=== PATIENT | female | born 1950 | race Caucasian/White ===

== ENCOUNTER 2020-01-19 12:54 | Emergency (ER) | payer MEDICARE, SELFPAY ==
[2020-01-19 12:55] VITALS: BP 110/60; PULSE 76; RESP 18; TEMP 36.7; O2SAT 100; BMI 25.7
--- NOTE | 2020-01-19 14:11 | RAD_ITS ---
STUDY: X-RAY - RIGHT SHOULDER REASON FOR EXAM: Female, 69 years old. FALL, PAIN TECHNIQUE: 4 view(s) of the shoulder. COMPARISON: None. FINDINGS: Normal glenohumeral articulation. Normal acromioclavicular joint. Normal acromion. Normal humeral head and visualized proximal humerus. The soft tissue structures are unremarkable. Normal visualized pulmonary apex. RAD/Shoulder min 2 Views IMPRESSION: Normal x-ray examination of the shoulder. Electronically Signed: Norm Bruner, at 14:53 EDT , Service support ,
--- NOTE | 2020-01-19 14:11 | CT_ITS ---
STUDY: CT BRAIN WITHOUT CONTRAST REASON FOR EXAM: Female, 69 years old. PT STATED HX OF FALLS RADIATION DOSAGE (If Supplied By Facility): CTDIvol = ( 44.99 ) mGy, DLP = ( 745.49 ) mGycm TECHNIQUE: Transaxial CT imaging of the brain was performed without administration of intravenous contrast material. Individualized dose optimization techniques were used for this CT. COMPARISON: No relevant priors. FINDINGS: Normal soft tissue structures. There is evidence of prior right frontoparietal craniotomy with mesh placement. There is mild cerebral atrophy with widening of the extra-axial spaces and ventricular dilatation. There are areas of decreased attenuation within the white matter tracts of the supratentorial brain, consistent with microvascular disease changes. Normal basal ganglia and thalami. Normal brainstem. There is mild cerebellar atrophy. There is no intracranial hemorrhage. There are no findings of an acute ischemic infarction. Atherosclerotic calcification of the cavernous portions of the internal carotid arteries bilaterally. Normal visualized paranasal sinuses. CT/Brain/Head without Contrast IMPRESSION: Chronic involutional changes of the brain. Status post right frontoparietal craniotomy. Electronically Signed: Norm Bruner, at 14:49 EDT , Service support ,
--- NOTE | 2020-01-19 14:11 | RAD_ITS ---
STUDY: X-RAY - PELVIS REASON FOR EXAM: Female, 69 years old. FALL, RIGHT SIDED PAIN TECHNIQUE: One view of the pelvis was obtained. COMPARISON: None. FINDINGS: There is a non-specific bowel gas pattern. Normal visualized soft tissue structures. There is narrowing with cortical sclerosis and osteophyte formation of the sacroiliac joint consistent with degenerative osteoarthritic changes. Normal visualized bilateral superior and inferior pubic rami. There are degenerative changes of the pubic symphysis with articular narrowing and sclerosis. Normal ischial tuberosities. Normal visualized right femoral head. Normal right acetabulum. There is moderate articular joint space narrowing of the right hip. Normal visualized left femoral head. Normal left acetabulum. There is moderate articular joint space narrowing of the left hip. Prior laminectomy and fusion in the lower lumbar spine. RAD/Pelvis 1 or 2 Views IMPRESSION: Moderate degree of osteoarthritis of both hip joints slightly worse on the right side. Electronically Signed: Norm Bruner, at 14:51 EDT , Service support ,
--- NOTE | 2020-01-19 14:28 | RAD_ITS ---
STUDY: X-RAY - RIGHT FEMUR REASON FOR STUDY: Female, 69 years old. FALL, DISTAL BRUISING TECHNIQUE: 4 view(s) of the femur. COMPARISON: None. FINDINGS: Focal ossification overlying the greater trochanter of the proximal femur suggestive of a bursitis. Normal visualized soft tissue structure. RAD/Femur Min 2 Views IMPRESSION: Findings images of calcific bursitis overlying the greater trochanter of the proximal right femur. Electronically Signed: Norm Bruner, at 14:50 EDT , Service support ,
[2020-01-19 14:55] VITALS: BP 116/65; PULSE 71; RESP 18; O2SAT 98
--- NOTE | 2020-01-19 14:58 | ED.VIS.FALL ---
History of Present Illness Chief Complaint: Fall Informant: Patient Occurred: Days - 3 Mechanism/Context: Same level fall, Trip Usually ambulates: Without assistance - At home, Cane - when out Location: Right shoulder, Right upper leg Quality of Pain: Aching Associated Symptoms: Negative for: Parasthesias, Weakness, Loss of function, Inability to ambulate, Loss of consciousness, Amnesia Narrative: Patient is a 69-year-old female with history of hypertension, diabetes mellitus, depression and prior traumatic head injury with subsequent craniotomy and plate placed presenting for evaluation after mechanical fall. On Sunday, 3 days ago patient was in her garage when she tripped over a rug and fell onto her right side. She did hit her head. No loss of consciousness. She landed on her right leg. Since then she has been complaining of diffuse right leg pain as well as right shoulder pain. She denies any associated headache, vision changes, hearing changes or any other symptoms. She also believes that she has a urinary tract infection. Patient states she has been having UTI symptoms with dysuria. She is been taking [id number] Uristat. She states her last UTI was 3 or 4 years ago which was before she had a bladder suspension surgery. Patient takes daily 81 mg aspirin but is not on any other oral anticoagulation. She was going to just follow-up with her primary care doctor but her daughter was concerned and recommended she come to the emergency room for evaluation. Patient has not been taking anything at home for her pain. Past Medical History - Allergies and Home Meds Allergies/Adverse Reactions: Allergies latex Allergy (Verified 01/19/20 13:00) Rash Primary Care Physician: Oz Celaya MD [Primary Care Provider] - Past Medical History: - - Hypertension, depression, diabetes mellitus, history of traumatic brain injury with decompressive craniotomy Surgical History: noncontributory Lives: Alone Smoking Status: Never smoker Review of Systems General: Denies: Chills, Fever, Sweats Eyes: Denies: Visual changes - bilaterally, Diplopia ENT: Denies: Rhinorrhea, Sore throat Cardiovascular: Denies: Chest pain, Palpitations Respiratory: Denies: Dyspnea, Cough, Dyspnea on exertion Gastrointestinal: Denies: Abdominal pain, Nausea, Vomiting, Diarrhea, Melena, Hematochezia Genitourinary: Reports: Dysuria. Denies: Hematuria, Frequency Musculoskeletal: Reports: Extremity Pain - Right shoulder, right upper leg. Denies: Back pain Skin: Denies: Rash, Wounds Neurological: Denies: Headache, Weakness, Numbness Physical Exam Vital Signs/Narrative: Vital Signs Temp Pulse Resp BP Pulse Ox 01/19/20 12:55 98.1 F 76 18 110/60 100 Inital Vital Signs reviewed: Yes General: Well nourished, Well developed Head: Normocephalic, Atraumatic Eyes: Perrl, EOMI ENT: TM's clear, No hemotympanum or drainage, No trauma. Negative for: Nasal septal hematoma Neck: Nontender, Full ROM Cardiovascular: Regular rate, Regular rhythm, No murmurs Respiratory: No distress, CTA bilaterally, Chest nontender Abdomen: Soft, Nontender, Nondistended, Normal bowel sounds Back: Nontender Extremeties: Right shoulder?no deformity, tenderness palpation over the anterior shoulder. Intact passive range of motion however patient has limited range of active motion secondary to pain. Right arm?no bony tenderness, normal range of motion without pain of the elbow and wrist. No joint abnormalities. Pelvis?stable. Right hip?mild tenderness of the lateral aspect with range of motion. Extremities are equal in length and there is no rotation. Mild edema of the right thigh with associated ecchymosis. Right knee-bony tenderness. No joint effusion noted. Normal range of motion. Right ankle?normal range of motion, no trauma or bony tenderness Skin: Normal color, No rash, - - Healing ecchymosis over the entire lateral right thigh, no hematoma palpated. Neurological: Alert, Oriented x3, Cranial nerves II-XII grossly intact, Normal Strength, Normal Sensation Psychological: Normal affect Diagnostic/Tx/Re-eval Clinical Impression(s) from Imaging Studies Brain CT 01/19/20 14:11 IMPRESSION: Chronic involutional changes of the brain. Status post right frontoparietal craniotomy. Electronically Signed: Norm Bruner, at 14:49 EDT , Service support , Pelvis X-Ray 01/19/20 14:11 IMPRESSION: Moderate degree of osteoarthritis of both hip joints slightly worse on the right side. Electronically Signed: Norm Bruner, at 14:51 EDT , Service support , Shoulder X-Ray 01/19/20 14:11 IMPRESSION: Normal x-ray examination of the shoulder. Electronically Signed: Norm Bruner, at 14:53 EDT , Service support , Femur X-Ray 01/19/20 14:28 IMPRESSION: Findings images of calcific bursitis overlying the greater trochanter of the proximal right femur. Electronically Signed: Norm Bruner, at 14:50 EDT , Service support , Laboratory Data 01/19/20 14:50 Urine Color Yellow Urine Clarity Cloudy Urine pH 5.0 Ur Specific [place] 1.010 Urine Protein 30 H Urine Glucose (UA) Normal Urine Ketones Negative Urine Occult Blood 25 H Urine Nitrite Positive H Urine Bilirubin 3 H Urine Urobilinogen 8 H Ur Leukocyte Esterase 500 H Urine RBC 0-5 SEEN Urine WBC 25-50 SEEN Ur Squamous Epith Cells 0-5 SEEN Urine Bacteria 1+ Urine Mucus 0 SEEN - Medical Decision Making Patient is evaluated after mechanical fall that occurred 3 days ago. She did hit her head but had no loss of consciousness. She is on [address] does not show acute intracranial process. She is complaining of right shoulder and right hip pain. She has no obvious deformity. No fracture however the right hip x-ray is concerning for bursitis. Patient is counseled to take NSAIDs for this. She is not aware of any contraindications for NSAIDs. Likely this is a traumatic bursitis. Patient is ambulating well. She does have a urinary tract infection which is consistent with her dysuria. She is not having systemic symptoms such as fever, chills or malaise. She will be started on a 5-day course of Keflex is given first dose in the emergency room. She instructed to follow-up with her PCP in 1 week. This information was relayed to her daughter as well over the phone. Patient is counseled on signs and symptoms requiring return to the emergency room. Patient verbalizes agreement and understand this plan. Patient discharged home in stable and improved condition. ED Disposition - Plan for ED Patient: Disposition: Home or Assisted Living Diagnosis: UTI (urinary tract infection), Bursitis of right hip, Fall, Injury of right shoulder Instructions: ED CYSTITIS Female Adult, ED Mechanical Fall, ED Bursitis, ED EXTREMITY CONTUSION Upper Prescriptions: Cephalexin [Keflex] 500 mg PO BID #10 cap Transmission Status: Pending to [id number] Referrals: Oz Celaya MD [Primary Care Provider] - Additional Instructions: You may take ibuprofen and/or Tylenol as needed for pain and your shoulder/right leg. Please follow-up with your primary care doctor in 1 week for recheck. At this time imaging shows that you did not break anything.
[2020-01-19 14:59] LABS: Mucous, Urine 0 SEEN /hpf (<or=2+)
[2020-01-19 15:02] LABS: Color, Urine Yellow (Yellow); Glucose, Dipstick Normal (Normal); Ketone-Dipstick Negative (Negative); Leukocyte Esterase-Dipstick 500 /ul (Negative); Nitrite-Dipstick Positive (Negative); Occult Blood-Urine 25 /ul (Negative); Protein-Dipstick 30 mg/dl (Negative); Urine Clarity Cloudy (Clear); Urine Urobilinogen 8 mg/dl (Normal)
[2020-01-19 15:04] LABS: Urine Bilirubin Dipstick 3 mg/dL (Negative)
[2020-01-19 15:08] LABS: Bacteria 1+ /hpf (None Seen); Red Blood Cells-Urine 0-5 SEEN /hpf (0-5); Squamous Epithelial Cells - UA 0-5 SEEN /hpf (5-10); White Blood Cells 25-50 SEEN /hpf (0-5)
[2020-01-19] MEDS: Cephalexin 250 MG Capsule 500 MG PO (15:33)
== END 2020-01-19 16:14 | disposition home or self-care (01) ==
PROVIDERS: Emergency Provider Emergency Medicine; PCP Internal Medicine
DX: N39.0 Urinary tract infection, site not specified (principal); S09.90XA Unspecified injury of head, initial encounter; S49.91XA Unspecified injury of right shoulder and upper arm, initial encounter; S70.11XA Contusion of right thigh, initial encounter; M16.0 Bilateral primary osteoarthritis of hip; M70.71 Other bursitis of hip, right hip; W01.10XA Fall on same level from slipping, tripping and stumbling with subsequent striking against unspecified object, initial encounter; Y93.9 Activity, unspecified; Y92.008 Other place in unspecified non-institutional (private) residence as the place of occurrence of the external cause; Y99.9 Unspecified external cause status; E11.9 Type 2 diabetes mellitus without complications; I10 Essential (primary) hypertension; F32.9 Major depressive disorder, single episode, unspecified; Z79.82 Long term (current) use of aspirin; Z91.040 Latex allergy status; Z87.440 Personal history of urinary (tract) infections
CPT/HCPCS: 70450; 72170; 73030; 73552; 81001; 87086; 87088; 87186; 99283